=== PATIENT | female | born 1980 | race Hispanic/Latino ===

== ENCOUNTER 2020-11-24 11:05 | Day surgery (SDC) | payer OTHER ==
[2020-11-22 12:20] LABS: HEMATOCRIT 32.4 % (36-48); MEAN CORPUSCULAR HEMOGLOBIN 28.5 pg (27.0-33.0); MEAN CORPUSCULAR HGB CONC 32.1 g/dL (32.0-36.0); MEAN CORPUSCULAR VOLUME 88.8 fL (79-99); PLATELET COUNT (AUTO) 280 K/uL (130-400); RED BLOOD CELL COUNT(AUTO) 3.65 MIL/uL (4.00-5.50); RED CELL DISTRIBUTION WIDTH 13.8 % (11.0-15.5); WHITE BLOOD COUNT (AUTO) 4.8 K/uL (4.8-10.8)
[2020-11-22 12:37] LABS: BILIRUBIN,TOTAL 0.2 mg/dL (0.2-1.0); CREATININE 0.6 mg/dL (0.5-1.5); POTASSIUM 4.1 mmol/L (3.5-5.1); TOTAL PROTEIN, SERUM 8.1 g/dL (6.0-8.3)
[2020-11-22 12:52] LABS: BASOPHILS % (MANUAL) 2 % (0-2); EOSINOPHILS % (MANUAL) 1 % (1-6); LYMPHOCYTES % (MANUAL) 47 % (22-44); MONOCYTES % (MANUAL) 4 % (2-9); SEGMENTED NEUTROPHILS % 46 % (40-70)
[2020-11-22 12:53] LABS: MAN.DIFF COMMENT-IMPRESSION MANUAL DIFFERENTIAL; PLATELET MORPHOLOGY COMMENT ADEQUATE
[~2020-11-24] VITALS: Ht 162.6 cm; Wt 67.5 kg
[2020-11-24] VITALS (12 sets, daily range): BP systolic 102–114; BP diastolic 50–71
[~2020-11-24 11:05] MED LIST: MECL-160 PO
[2020-11-24] MEDS ORDERED: LACTATED RINGERS 1000ML 1,000 ML IV ONE (12:31)
[2020-11-24] MEDS: CEFAZOLIN SODIUM 1 GM VIAL ONE ×2 (12:47→16:21)
[2020-11-24] MEDS ORDERED: SCOPOLAMINE HYDROBROMIDE 1 EACH ADH..PATCH TD ONE (14:24)
[2020-11-24] MEDS ORDERED: INDOCYANINE GREEN 25 MG VIAL IJ ONE (15:16)
[2020-11-24] MEDS ORDERED: DEXAMETHASONE SOD PHOSPHATE 10MG/ML 1ML VIAL ONE (15:46)
[2020-11-24] MEDS ORDERED: LIDOCAINE PF 100MG/5ML (2%) SYRINGE 5ML ONE (15:46)
[2020-11-24] MEDS ORDERED: GLYCOPYRROLATE 1 MG/5 ML SYRINGE ONE (15:46)
[2020-11-24] MEDS ORDERED: ONDANSETRON 4MG INJ ONE (15:46)
[2020-11-24] MEDS ORDERED: SUCCINYLCHOLINE 200MG/10ML SYR ONE (15:46)
[2020-11-24] MEDS ORDERED: PROPOFOL 10 MG/ML 20ML VIAL IV ONE (15:46)
[2020-11-24] MEDS ORDERED: MEPERIDINE-PF 25 MG/ML SYG ONE ×3 (15:47→18:03)
[2020-11-24] MEDS ORDERED: NEOSTIGMINE 5MG/5ML SYR IV ONE (15:47)
[2020-11-24] MEDS ORDERED: FENTANYL CITRATE PF 50 MCG/1 ML 2ML VIAL ONE (15:47)
[2020-11-24] MEDS ORDERED: MIDAZOLAM HCL 1 MG/ML 2ML VIAL ONE (15:47)
[2020-11-24] MEDS ORDERED: ROCURONIUM 10MG/1ML SYR 10 MG/ML ML ONE (15:47)
[2020-11-24] MEDS ORDERED: PHENYLEPHRINE HCL 10 MG/ML 1ML VIAL IV ONE (16:21)
[2020-11-24] MEDS ORDERED: BUPIVACAINE/PF 0.5% 30ML VIAL ONE (16:23)
[2020-11-24] MEDS ORDERED: EPHEDRINE SULFATE 50 MG/ML AMPULE ONE (16:31)
[2020-11-24] MEDS ORDERED: LIDOCAINE HCL MPF 1% 5ML VIAL ONE (17:21)
[2020-11-24] MEDS ORDERED: KETOROLAC 30MG VIAL (30MG/ML) ONE ×2 (17:41→18:26)
== END 2020-11-24 19:50 | disposition home or self-care (01) ==
LOC: DAH 11:05
PROVIDERS: ATTEND Student in an Organized Health Care Education/Training Program
DX: K80.10 Calculus of gallbladder with chronic cholecystitis without obstruction (principal); Z20.822 Contact with and (suspected) exposure to COVID-19; K42.9 Umbilical hernia without obstruction or gangrene; Z98.51 Tubal ligation status; Z82.49 Family history of ischemic heart disease and other diseases of the circulatory system; Z79.899 Other long term (current) drug therapy
CPT/HCPCS: 47562; 49585; S2900; 36415; 80053; 84703; 85025; 87635; C9803; J0330; J0690; J1100; J1885; J2001; J2175; J2250; J2370; J2405; J2704; J2710; J3010; J3490; J7030; J7120